=== PATIENT | male | born 1975 | race American Indian/Alaskan Native ===

== ENCOUNTER 2017-06-27 21:26 | Emergency (ER) | payer BC ==
[2017-06-27] MEDS ORDERED: Sodium Chloride 0.9% 1,000 ML IV ONE (22:08)
[2017-06-27 22:29] LABS: RBC URINE < 1 /hpf (0-3); URINE BACTERIA OCC (<OCC); URINE BILIRUBIN NEGATIVE (NEGATIVE); URINE BLOOD NEGATIVE (NEGATIVE); URINE COLOR Yellow (YELLOW); URINE GLUCOSE (UA) NORMAL (Normal); URINE HYALINE CAST >20 /lpf (0-2); URINE KETONE NEGATIVE (NEGATIVE); URINE LEUKOCYTE ESTERASE 1+ Leu/uL (Negative); URINE PROTEIN 1+ mg/dL (NEGATIVE); URINE UROBILINOGEN NORMAL mg/dL (0.2-1.0); WBC URINE 9 /hpf (0-5)
[2017-06-27 22:40] LABS: BASO % 0.4 % (0.0-2.0); EOS % 0.4 % (0.0-4.0); HEMATOCRIT 44.2 % (35.0-51.0); LYMPH # 0.9 K/uL (1.0-4.3); LYMPH % 8.9 % (20.0-40.0); MEAN CELL VOLUME 92.3 fL (80.0-94.0); MEAN CORPUSCULAR HEMOGLOBIN 31.5 pg (27.0-31.0); MEAN CORPUSCULAR HGB CONC 34.1 g/dL (33.0-37.0); MEAN PLATELET VOLUME 7.8 fL (7.2-11.7); MONO # 0.5 K/uL (0.0-0.8); MONO % 4.7 % (0.0-10.0); PLATELET COUNT 243 K/uL (130-400); RED CELL DISTRIBUTION WIDTH 13.3 % (11.5-14.5)
[2017-06-27 22:46] LABS: CHLORIDE 107 mmol/L (98-107)
[2017-06-27 22:47] LABS: POTASSIUM 5.2 mmol/L (3.6-5.2); SODIUM 139 mmol/L (132-148)
[2017-06-27 22:49] LABS: ALB/GLOB RATIO 1.4 (1.0-2.1); ALKALINE PHOSPHATASE 50 U/L (38-126); AST/SGOT 49 U/L (17-59); BILIRUBIN,TOTAL 1.6 mg/dL (0.2-1.3); BLOOD UREA NITROGEN 17 mg/dL (9-20); CARBON DIOXIDE 20 mmol/L (22-30); GFR AFRICAN-AMERICAN > 60; TOTAL PROTEIN 8.1 g/dL (6.3-8.3)
[2017-06-27 22:50] LABS: ALCOHOL SERUM < 10 mg/dl (0-10); ALT/SGPT 18 U/L (21-72); CALCIUM 8.7 mg/dl (8.6-10.4); GLUCOSE,RANDOM 128 mg/dL (75-110); MAGNESIUM 1.9 mg/dL (1.6-2.3)
[2017-06-27 23:07] VITALS: RESP 15; O2SAT 99
[2017-06-27 23:21] LABS: LARGE PLATELETS PRESENT; NEUTROPHIL 81 % (50-75); SMUDGE CELLS PRESENT; TOTAL CELLS COUNTED 100
--- NOTE | 2017-06-27 23:40 | C.PDOC ---
History Of Present Illness Pt states he found a wallet on the street that contained a packet of what he thought is marijuana. The smoked the contents of that packet tonight and right after he smoked it he collapsed and became unresponsive. He vomited once, but according to a witness he did not have convulsions. Upon arrival to the ED pt was already AAOx3. Time Seen by Provider: 06/27/17 21:52 Chief Complaint (Nursing): Altered Mental Status History Per: Patient, EMS Current Symptoms Are (Timing): Better Usual Baseline: Alert Oriented, Ambulatory Exacerbating Factor(s): Drug Use Severity: Moderate Additional History Per: Prior Records Past Medical History Reviewed: Historical Data, Nursing Documentation, Vital Signs Vital Signs: Last Vital Signs Temp 98.1 F 06/27/17 23:06 Pulse 100 H 06/27/17 23:06 Resp 15 06/27/17 23:06 BP 151/66 H 06/27/17 23:06 Pulse Ox 99 06/27/17 23:42 - Medical History PMH: No Chronic Diseases Surgical History: No Surg Hx Family History: States: Unknown Family Hx - Social History Hx Alcohol Use: Yes Hx Substance Use: Yes (Marijuana) - Immunization History Hx Tetanus Toxoid Vaccination: No Hx Influenza Vaccination: No Hx Pneumococcal Vaccination: No Review Of Systems Except As Marked, All Systems Reviewed And Found Negative. Constitutional: Negative for: Fever Cardiovascular: Negative for: Chest Pain Respiratory: Negative for: Shortness of Breath Gastrointestinal: Negative for: Abdominal Pain Musculoskeletal: Negative for: Neck Pain Skin: Negative for: Rash Neurological: Negative for: Weakness, Numbness, Headache Physical Exam - Physical Exam Appears: No Acute Distress Skin: Normal Color, Warm, Dry Head: No Laceration, Other (Contusion to nose) Eye(s): bilateral: PERRL, EOMI Neck: Normal ROM, No Midline Cervical Tenderness, No Step Off Deformity, Supple Chest: Symmetrical, No Deformity Cardiovascular: Rhythm Regular Respiratory: Normal Breath Sounds, No Accessory Muscle Use Gastrointestinal/Abdominal: Soft, No Tenderness Back: No CVA Tenderness, No Vertebral Tenderness Extremity: Normal ROM, No Tenderness, No Deformity, Other (abrasions on hands) Neurological/Psych: Oriented x3, Normal Motor, Normal Sensation ED Course And Treatment - Laboratory Results Result Diagrams: 06/27/17 22:29 06/27/17 22:29 ECG: Interpreted By Me, Viewed By Me ECG Rhythm: Sinus Tachycardia, Nonspecific Changes Rate From EC O2 Sat by Pulse Oximetry: 99 Pulse Ox Interpretation: Normal Progress Note: Pt feels "good" and wants to go home. He refused CT scan of his head. He is clinically sober, AAOx3, steady gait. Reassessment Condition: Improved Disposition Counseled Patient/Family Regarding: Studies Performed, Diagnosis, Need For Followup - Disposition Disposition: HOME/ ROUTINE Disposition Time: 23:46 Condition: IMPROVED Additional Instructions: Avoid use of any illicit substances. Follow up with your doctor. Return to the ER if you pass out again, develop a seizure, worsening of symptoms or if you have any other concerns. Forms: [facility] (Vietnamese), General Discharge Instructions, Work Excuse - Clinical Impression Clinical Impression: Substance intoxication
[2017-06-28 00:03] VITALS: BP 137/79; PULSE 91; TEMP 98.3
--- NOTE | 2017-06-29 01:38 | CARD ---
APPROVED REPORT EKG Measurement Heart [id number] <Conclusion> Sinus tachycardia Possible Left atrial enlargement Nonspecific T wave abnormality Abnormal ECG
== END 2017-06-28 00:03 | disposition home or self-care (01) ==
LOC: C.ER 21:26
DX: T65.91XA Toxic effect of unspecified substance, accidental (unintentional), initial encounter (principal)
CPT/HCPCS: 80053; 81001; 83735; 85025; 93005; 96360; 99284; G0480; J7040